=== PATIENT | female | born 1950 | race Caucasian/White ===

== ENCOUNTER 2019-12-15 06:05 | Day surgery (SDC) | payer MEDICARE ==
[2019-12-12 09:43] VITALS: BMI 24.1
[2019-12-15] MEDS ORDERED: PROPOFOL 200 MG/20 ML VIAL ONE (09:38)
[2019-12-15] MEDS ORDERED: Lidocaine 1% PF 5 ML VIAL ONE (09:38)
--- NOTE | 2019-12-15 14:18 | OP ---
DATE OF PROCEDURE: 12/15/2019 PROCEDURE PERFORMED: Esophagogastroduodenoscopy with esophageal dilation and biopsy of the duodenum. PREOPERATIVE DIAGNOSES: Dysphagia, gastroesophageal reflux, and chronic diarrhea. DESCRIPTION OF PROCEDURE: Informed consent was obtained from the patient. She was sedated with total intravenous anesthesia. The bite block was placed, and the endoscope was advanced easily to the second portion of the duodenum, and retroflexion was performed in the stomach. The esophagus had a mild ring at the Z-line at the GE junction. This was dilated to 18 mm with a Savary dilator over a guidewire. There was an appropriate shallow tear at the dilation site. There was also a shallow proximal tear as well. That was just below the upper esophageal sphincter. The remainder of the esophagus was normal. There were no changes of eosinophilic esophagitis. The GE junction was otherwise normal. The stomach was normal including retroflexed views. The pylorus and first and second portions of the duodenum were normal. Biopsies were obtained from the duodenum to rule out celiac disease. Air was suctioned from the stomach. The procedure was completed. IMPRESSION: 1. Slight ring at the gastroesophageal junction, dilated to 18 mm with a shallow tear at the dilation site. There was also a shallow tear in the upper esophagus just below the upper esophageal sphincter. 2. Otherwise, normal esophagogastroduodenoscopy. Duodenal biopsies were taken to rule out celiac disease. RECOMMENDATIONS: 1. Await histopathology. 2. Continue proton-pump inhibitor. 3. Follow up in [facility]. Job ID: [id number]
== END 2019-12-15 09:15 | disposition home or self-care (01) ==
LOC: SDC 06:05
PROVIDERS: ATTEND Internal Medicine Gastroenterology
PROC: 0D748ZZ Dilation of Esophagogastric Junction, Via Natural or Artificial Opening Endoscopic (ICD-10-PCS; principal; 2019-12-15)
PROC: 0DB98ZX Excision of Duodenum, Via Natural or Artificial Opening Endoscopic, Diagnostic (ICD-10-PCS; 2019-12-15)
DX: K22.2 Esophageal obstruction (principal); K52.9 Noninfective gastroenteritis and colitis, unspecified; K21.9 Gastro-esophageal reflux disease without esophagitis; I10 Essential (primary) hypertension; F41.9 Anxiety disorder, unspecified; R14.0 Abdominal distension (gaseous); Z79.82 Long term (current) use of aspirin; Z79.899 Other long term (current) drug therapy; Z88.8 Allergy status to other drugs, medicaments and biological substances; Z91.040 Latex allergy status
CPT/HCPCS: 88305; J2001; J2704